=== PATIENT | male | born 1970 | race Caucasian/White ===

== ENCOUNTER 2017-10-10 12:49 | Emergency (ER) | payer OTHER ==
[~2017-10-10] VITALS: Ht 180.3 cm; Wt 69.0 kg
[2017-10-10 12:51] VITALS: BP 114/76
[2017-10-10] MEDS ORDERED: KETOROLAC 30 MG/1 ML ONE (13:23)
[2017-10-10] MEDS ORDERED: METHOCARBAMOL 750 MG TABLET ONE (13:23)
[2017-10-10] MEDS ORDERED: METHOCARBAMOL 750 MG TABLET PO ONE (13:30)
[2017-10-10] MEDS ORDERED: KETOROLAC 30 MG/1 ML IM ONE (13:30)
== END 2017-10-10 15:04 | disposition home or self-care (01) ==
LOC: ED 13:50
DX: S06.0X9A Concussion with loss of consciousness of unspecified duration, initial encounter (principal); S16.1XXA Strain of muscle, fascia and tendon at neck level, initial encounter; G44.219 Episodic tension-type headache, not intractable; V49.9XXA Car occupant (driver) (passenger) injured in unspecified traffic accident, initial encounter; Y93.89 Activity, other specified; Y99.8 Other external cause status; Y92.488 Other paved roadways as the place of occurrence of the external cause
CPT/HCPCS: 70450; 96372; 99284; J1885

== ENCOUNTER 2019-06-06 14:51 | Emergency (ER) | payer OTHER ==
[~2019-06-06] VITALS: Ht 180.3 cm; Wt 70.3 kg
[~2019-06-06 14:51] MED LIST: ALPR0.25 PO; ONDA4TAB13 SL; PANT40TA3 PO; SIMV20TA PO
--- NOTE | 2019-06-06 15:35 | NUR ---
pt to room
--- NOTE | 2019-06-06 15:40 | NUR ---
pt to xray
[2019-06-06] MEDS ORDERED: KETOROLAC 30 MG/1 ML ONE (15:57)
[2019-06-06] MEDS ORDERED: METHOCARBAMOL 750 MG TABLET ONE (15:57)
[2019-06-06] MEDS ORDERED: ONDANSETRON 2MG/ML, 2ML ONE (15:57)
[2019-06-06] MEDS ORDERED: HYDROmorphone 1 MG/ML, 1ML INJ ONE (15:57)
[2019-06-06] MEDS ORDERED: SODIUM CHLORIDE FLUSH 10ML SYR IVF ONE (16:00)
[2019-06-06] MEDS ORDERED: METHOCARBAMOL 750 MG TABLET PO ONE (16:00)
[2019-06-06] MEDS ORDERED: ONDANSETRON 2MG/ML, 2ML IVPush ONE (16:00)
[2019-06-06] MEDS ORDERED: KETOROLAC 30 MG/1 ML IVPush ONE (16:00)
[2019-06-06] MEDS ORDERED: HYDROmorphone 2 MG/ML, 1ML IVPush PRN (16:00)
--- NOTE | 2019-06-06 16:07 | NUR ---
Pt here for lower back pain x 5 days. pt reports he has had medications for and is not helping. Pt reports no loss of bowel control. Pt denies truama. 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 Pt connected to monitors and call light in reach.
[2019-06-06 16:08] VITALS: BP 108/63
--- NOTE | 2019-06-06 17:02 | NUR ---
Patient/Caregiver given discharge instructions and they have confirmed that they understand the instructions. Patient ambulatory with steady gait.
== END 2019-06-06 17:21 | disposition home or self-care (01) ==
LOC: ED 17:15
DX: S39.012A Strain of muscle, fascia and tendon of lower back, initial encounter (principal); X58.XXXA Exposure to other specified factors, initial encounter; Y93.89 Activity, other specified; Y92.89 Other specified places as the place of occurrence of the external cause; Y99.8 Other external cause status
CPT/HCPCS: 72110; 96374; 96375; 99283; J1170; J1885; J2405

== ENCOUNTER 2019-06-20 17:19 | Observation (INO) | payer OTHER ==
[~2019-06-20] VITALS: Ht 180.3 cm; Wt 67.8 kg
--- NOTE | 2019-06-20 20:12 | NUR ---
PT TO ROOM FROM LOBBY
--- NOTE | 2019-06-20 20:28 | NUR ---
DR. SAMANO AT BEDSIDE EVALUATING PT
[2019-06-20] MEDS ORDERED: methylPREDNISolone SOD SUCC 125 MG/2 ML ONE (20:46)
[2019-06-20] MEDS ORDERED: DIAZEPAM 5 MG/ML, 2ML ONE (20:47)
[2019-06-20] MEDS ORDERED: ONDANSETRON 2MG/ML, 2ML ONE (20:47)
[2019-06-20] MEDS ORDERED: HYDROmorphone 1 MG/ML, 1ML INJ ONE (20:47)
[2019-06-20 20:53] LABS: BASOPHILS # (AUTO) 0.09 x10^3/uL (0-0.1); BASOPHILS % (AUTO) 1 % (0-1); EOSINOPHILS # (AUTO) 0.04 x10^3/uL (0-0.4); EOSINOPHILS % (AUTO) 0 % (1-7); LYMPHOCYTES % (AUTO) 29 % (22-44); MD NO; MEAN CORPUSCULAR HEMOGLOBIN 31.6 pg (27.5-34.5); MEAN CORPUSCULAR HGB CONC 33.9 g/dL (33.2-36.2); MEAN CORPUSCULAR VOLUME 93.1 fL (81-97); MEAN PLATELET VOLUME 7.6 fL (7.4-10.4); MONOCYTES # (AUTO) 0.67 x10^3/uL (0.2-0.8); MONOCYTES % (AUTO) 7 % (2-9); NEUTROPHILS # (AUTO) 5.98 x10^3/uL (1.8-6.8); NEUTROPHILS % (AUTO) 63 % (42-75); PLATELET COUNT 216 x10^3/uL (130-400); RED BLOOD COUNT 5.48 x10^6/uL (4.38-5.82); RED CELL DISTRIBUTION WIDTH 14.4 % (9.4-14.8)
[2019-06-20 21:00] LABS: ALANINE AMINOTRANSFERASE 115 U/L (12-78); ALBUMIN 4.5 g/dL (3.4-5.0); ANION GAP 10 mmol/L (5-15); CALCIUM 9.8 mg/dL (8.5-10.1); CHLORIDE 104 mmol/L (98-107); CREATININE 1.23 mg/dL (0.7-1.3)
[2019-06-20] MEDS ORDERED: SODIUM CHLORIDE FLUSH 10ML SYR IVF ONE (21:00)
[2019-06-20] MEDS ORDERED: DIAZEPAM 5 MG/ML, 2ML IVPush ONE (21:00)
[2019-06-20] MEDS ORDERED: ONDANSETRON 2MG/ML, 2ML IVPush ONE (21:00)
[2019-06-20] MEDS ORDERED: SODIUM CHLORIDE 0.9% 1,000ML IV ONE (21:00)
[2019-06-20] MEDS ORDERED: HYDROmorphone 2 MG/ML, 1ML IVPush PRN (21:00)
[2019-06-20] MEDS ORDERED: methylPREDNISolone SOD SUCC 125 MG/2 ML IVPush ONE (21:00)
[2019-06-20 21:02] LABS: ALKALINE PHOSPHATASE 69 U/L (45-117); TOTAL PROTEIN 8.5 g/dL (6.4-8.2)
--- NOTE | 2019-06-20 21:03 | NUR ---
IV ESTABLISHED AND PT MEDICATED PER EMAR. 5 RIGHTS ADDRESSED. PT REPORTS SIGNIFICANT RELIEF FROM PAIN AFTER VALIUM ADMINISTRATION. DILAUDID HELD FOR NOW. PT ALSO REPORTS RELIEF FROM NAUSEA AFTER ZOFRAN ADMINISTRATION.
--- NOTE | 2019-06-20 21:33 | NUR ---
PT MEDICATED FOR PAIN. PT REPORTS A SIGNIFICANT RELIEF IN DISCOMFORT. PT SITTING UP ON GURNEY. TOLERATING PO FLUIDS AT THIS TIME. PT TO BE ADMITTED, AWAITING ROOM ON FLOOR. WILL CONTINUE TO MONITOR. CALL LIGHT WITHIN REACH.
--- NOTE | 2019-06-20 21:52 | NUR ---
REPORT TO KISHRO GARCIA.
[2019-06-20] MEDS ORDERED: OXYC-307 PO (22:42)
[2019-06-20] MEDS ORDERED: METH750T87 PO (22:42)
[2019-06-20] MEDS ORDERED: DULO20CA45 PO (22:42)
[2019-06-20] MEDS ORDERED: NAPR-858 PO (22:42)
[2019-06-20 22:43] VITALS: BP 102/67
[2019-06-21] MEDS ORDERED: HYDROcodone/APAP 5/325 TABLET PO PRN
[2019-06-21] MEDS ORDERED: ACETAMINOPHEN 325 MG TABLET PO PRN
[2019-06-21] MEDS ORDERED: hydrALAzine 20 MG/ML, 1ML IVPush PRN
[2019-06-21] MEDS ORDERED: POLYETHYLENE GLYCOL 17 GM PACKET PO PRN
[2019-06-21] MEDS ORDERED: BISACODYL 10 MG SUPP PR PRN
[2019-06-21] MEDS ORDERED: PROMETHAZINE 25 MG/ML, 1ML IM PRN
[2019-06-21] MEDS ORDERED: ONDANSETRON ODT 4 MG PO PRN
[2019-06-21] MEDS: ENOXAPARIN 40 MG/0.4 ML SQ SCH ×2 (00:11→23:40)
[2019-06-21] MEDS: morphine SULFATE 10 MG/ML, 1ML IVPush PRN ×5 (00:12→23:40)
[2019-06-21 00:18] LABS: FREE T4 (FREE THYROXINE) 1.31 ng/dL (0.76-1.46)
[2019-06-21] MEDS: KETOROLAC 30 MG/1 ML IV PRN ×3 (00:42→18:41)
[2019-06-21 00:44] LABS: MICROSCOPIC NOT IND
[2019-06-21 00:57] LABS: CULTURE INDICATED? NO
[2019-06-21 02:35] VITALS: BP 118/75
[2019-06-21 08:40] VITALS: BP 115/71
[2019-06-21] MEDS: SENNA/DOCUSATE TABLET PO SCH (09:04)
[2019-06-21 09:36] LABS: BASOPHILS # (AUTO) 0.03 x10^3/uL (0-0.1); BASOPHILS % (AUTO) 0 % (0-1); EOSINOPHILS % (AUTO) 0 % (1-7); LYMPHOCYTES # (AUTO) 2.08 x10^3/uL (1-3.4); LYMPHOCYTES % (AUTO) 19 % (22-44); MD NO; MEAN CORPUSCULAR VOLUME 94.2 fL (81-97); MEAN PLATELET VOLUME 7.4 fL (7.4-10.4); MONOCYTES # (AUTO) 0.41 x10^3/uL (0.2-0.8); MONOCYTES % (AUTO) 4 % (2-9); NEUTROPHILS # (AUTO) 8.71 x10^3/uL (1.8-6.8); NEUTROPHILS % (AUTO) 78 % (42-75); PLATELET COUNT 206 x10^3/uL (130-400); RED BLOOD COUNT 5.09 x10^6/uL (4.38-5.82)
[2019-06-21 09:48] LABS: ANION GAP 10 mmol/L (5-15); CALCIUM 9.3 mg/dL (8.5-10.1); CHLORIDE 105 mmol/L (98-107)
[2019-06-21 09:52] LABS: ALANINE AMINOTRANSFERASE 93 U/L (12-78); ALKALINE PHOSPHATASE 64 U/L (45-117); BILIRUBIN,TOTAL 0.9 mg/dL (0.2-1.0); CHOL/HDL RATIO 4.9; CHOLESTEROL, TOTAL 227 mg/dL (140-239); CREATININE 1.03 mg/dL (0.7-1.3); HDL CHOL % 20 % (26-37); HDL CHOLESTEROL (DIRECT) 46 mg/dL (40-60); LDL CHOLESTEROL,CALCULATED 166 mg/dL (54-169); LDL/HDL RATIO 3.6 (0.5-3.0); TOTAL PROTEIN 7.6 g/dL (6.4-8.2); TRIGLYCERIDES 75 mg/dL (50-200); VLDL CHOLESTEROL 15 mg/dL (0-25)
[2019-06-21] MEDS: CYCLOBENZAPRINE 10 MG TABLET PO PRN (11:10)
[2019-06-21] MEDS: DULOXETINE 30 MG CAPSULE.DR PO SCH (11:10)
[2019-06-21] MEDS: OXYcodone/APAP 10/325MG TABLET PO PRN ×2 (11:11→17:29)
[2019-06-21] MEDS: ONDANSETRON 2MG/ML, 2ML IVPush PRN ×2 (12:39→18:41)
[2019-06-21 13:40] VITALS: BP 116/71
[2019-06-21] MEDS: LACTATED RINGERS 1,000 ML IV SCH ×2 (15:41→23:35)
[2019-06-21 18:48] VITALS: BP 109/73
[2019-06-22 00:49] VITALS: BP 105/66
[2019-06-22] MEDS: morphine SULFATE 10 MG/ML, 1ML IVPush PRN ×4 (03:55→14:15)
[2019-06-22 05:02] LABS: MEAN CORPUSCULAR HEMOGLOBIN 31.4 pg (27.5-34.5); MEAN CORPUSCULAR VOLUME 95.1 fL (81-97); MEAN PLATELET VOLUME 7.4 fL (7.4-10.4); PLATELET COUNT 196 x10^3/uL (130-400); RED BLOOD COUNT 4.31 x10^6/uL (4.38-5.82); RED CELL DISTRIBUTION WIDTH 13.9 % (9.4-14.8)
[2019-06-22 05:08] LABS: ALBUMIN 3.4 g/dL (3.4-5.0); ANION GAP 3 mmol/L (5-15); CALCIUM 8.4 mg/dL (8.5-10.1); CHLORIDE 107 mmol/L (98-107)
[2019-06-22 05:12] LABS: ALANINE AMINOTRANSFERASE 66 U/L (12-78); ALKALINE PHOSPHATASE 48 U/L (45-117); BILIRUBIN,TOTAL 0.9 mg/dL (0.2-1.0); CREATININE 0.86 mg/dL (0.7-1.3); TOTAL PROTEIN 6.3 g/dL (6.4-8.2)
[2019-06-22 05:42] LABS: BASOPHILS # (AUTO) 0.04 x10^3/uL (0-0.1); BASOPHILS % (AUTO) 1 % (0-1); EOSINOPHILS # (AUTO) 0.13 x10^3/uL (0-0.4); EOSINOPHILS % (AUTO) 1 % (1-7); LYMPHOCYTES # (AUTO) 4.33 x10^3/uL (1-3.4); LYMPHOCYTES % (AUTO) 47 % (22-44); MD SCAN; MONOCYTES # (AUTO) 0.64 x10^3/uL (0.2-0.8); MONOCYTES % (AUTO) 7 % (2-9); NEUTROPHILS # (AUTO) 4.02 x10^3/uL (1.8-6.8); NEUTROPHILS % (AUTO) 44 % (42-75)
[2019-06-22 07:06] VITALS: BP 111/73
[2019-06-22] MEDS: LACTATED RINGERS 1,000 ML IV SCH (07:10)
[2019-06-22] MEDS: DULOXETINE 30 MG CAPSULE.DR PO SCH (10:22)
[2019-06-22] MEDS: CYCLOBENZAPRINE 10 MG TABLET PO PRN (10:25)
[2019-06-22] MEDS: SENNA/DOCUSATE TABLET PO SCH (10:26)
[2019-06-22] MEDS: ONDANSETRON 2MG/ML, 2ML IVPush PRN (10:42)
[2019-06-22] MEDS ORDERED: CYCL-259 PO (11:19)
[2019-06-22] MEDS ORDERED: PRED20TA PO (11:19)
[2019-06-22] MEDS ORDERED: ONDA4TAB13 PO (11:20)
[2019-06-22 13:50] VITALS: BP 121/78
== END 2019-06-22 14:32 | disposition home or self-care (01) ==
LOC: ED 20:50 → INTOOBSV 22:25 → EDIP 22:25 → 4NE 22:28 → 4NW 06-21 20:14 → DCLOUNGE 06-22 14:30
PROVIDERS: ADMIT Emergency Medicine; ATTEND Family Medicine
DX: M54.5 Low back pain (principal); M51.17 Intervertebral disc disorders with radiculopathy, lumbosacral region; G89.29 Other chronic pain; K21.9 Gastro-esophageal reflux disease without esophagitis; F41.9 Anxiety disorder, unspecified; F12.10 Cannabis abuse, uncomplicated; E86.0 Dehydration; Z87.891 Personal history of nicotine dependence; Z79.899 Other long term (current) drug therapy
CPT/HCPCS: 36415; 76700; 80053; 80061; 81003; 83036; 83735; 84439; 84443; 85025; 96361; 96372; 96374; 96375; 96376; G0378; J1650; J1885; J2270; J2405; J2930; J3360; J7030; J7120; J7512; Q0162

== ENCOUNTER 2019-07-04 07:59 | Observation (INO) | payer OTHER ==
[~2019-07-04] VITALS: Ht 180.3 cm; Wt 68.0 kg
[~2019-07-04 07:59] MED LIST changes: +CYCL-259 PO; +DULO20CA45 PO; +METH750T87 PO; +NAPR-858 PO; +ONDA4TAB13 PO; +OXYC-307 PO; +PRED20TA PO
[2019-07-04] MEDS ORDERED: SODIUM CHLORIDE 0.9% 1,000ML IVBOLUS ONE (08:30)
[2019-07-04] MEDS ORDERED: ONDANSETRON 2MG/ML, 2ML IVPush ONE (08:30)
[2019-07-04] MEDS ORDERED: SODIUM CHLORIDE FLUSH 10ML SYR IVF ONE (08:30)
[2019-07-04] MEDS ORDERED: HYDROmorphone 1 MG/ML, 1ML INJ ONE ×2 (08:34→13:11)
[2019-07-04] MEDS ORDERED: ONDANSETRON 2MG/ML, 2ML ONE (08:34)
[2019-07-04] MEDS: HYDROmorphone 2 MG/ML, 1ML IVPush PRN ×2 (08:53→13:23)
--- NOTE | 2019-07-04 08:54 | NUR ---
PT RETURNED FROM XRAY. IV ESTABLISHED AND PT MEDICATED PER MAR, IVF INFUSING. PT GIVEN SAMPLE CUP FOR UA. CALL LIGHT WITHIN REACH.
[2019-07-04 08:58] LABS: BASOPHILS # (AUTO) 0.04 x10^3/uL (0-0.1); BASOPHILS % (AUTO) 1 % (0-1); EOSINOPHILS # (AUTO) 0.12 x10^3/uL (0-0.4); EOSINOPHILS % (AUTO) 2 % (1-7); LYMPHOCYTES # (AUTO) 2.41 x10^3/uL (1-3.4); LYMPHOCYTES % (AUTO) 30 % (22-44); MD NO; MEAN CORPUSCULAR HEMOGLOBIN 31.8 pg (27.5-34.5); MEAN CORPUSCULAR HGB CONC 33.7 g/dL (33.2-36.2); MEAN CORPUSCULAR VOLUME 94.3 fL (81-97); MEAN PLATELET VOLUME 7.1 fL (7.4-10.4); MONOCYTES # (AUTO) 0.46 x10^3/uL (0.2-0.8); MONOCYTES % (AUTO) 6 % (2-9); NEUTROPHILS # (AUTO) 4.92 x10^3/uL (1.8-6.8); NEUTROPHILS % (AUTO) 62 % (42-75); PLATELET COUNT 239 x10^3/uL (130-400); RED BLOOD COUNT 5.14 x10^6/uL (4.38-5.82); RED CELL DISTRIBUTION WIDTH 14.4 % (9.4-14.8)
[2019-07-04 09:11] LABS: ALBUMIN 4.1 g/dL (3.4-5.0); ANION GAP 9 mmol/L (5-15); CHLORIDE 106 mmol/L (98-107)
[2019-07-04 09:15] LABS: ALANINE AMINOTRANSFERASE 52 U/L (12-78); ALKALINE PHOSPHATASE 67 U/L (45-117); BILIRUBIN,TOTAL 1.2 mg/dL (0.2-1.0); CREATININE 1.01 mg/dL (0.7-1.3); TOTAL PROTEIN 7.9 g/dL (6.4-8.2)
[2019-07-04] MEDS ORDERED: DIAZEPAM 5 MG/ML, 2ML IVPush ONE (10:00)
[2019-07-04 10:04] LABS: MICROSCOPIC NOT IND
[2019-07-04 10:16] LABS: CULTURE INDICATED? NO
--- NOTE | 2019-07-04 10:20 | NUR ---
PT RESTING IN [facility] PT MEDICATED PER JUL. AWAITING LAB AND RAD RESULTS. PT STATES HE IS STILL IN PAIN.
[2019-07-04] MEDS ORDERED: DIAZEPAM 5 MG/ML, 2ML ONE (10:35)
--- NOTE | 2019-07-04 12:13 | NUR ---
ADMITTING MD AT BEDSIDE
[2019-07-04] MEDS ORDERED: IBUPROFEN 600 MG TABLET PO PRN (12:30)
[2019-07-04] MEDS ORDERED: ONDANSETRON 2MG/ML, 2ML IVPush PRN (12:30)
[2019-07-04] MEDS: LACTULOSE 10 GM/15 ML UDC PO SCH ×2 (12:30→22:22)
[2019-07-04] MEDS ORDERED: LACTULOSE 20 GM/30 ML UDC PO PRN (12:30)
[2019-07-04] MEDS ORDERED: BISACODYL 10 MG SUPP PR PRN (12:30)
[2019-07-04] MEDS ORDERED: hydrALAzine 20 MG/ML, 1ML IVPush PRN (12:30)
[2019-07-04] MEDS ORDERED: OXYcodone IR 5MG TABLET PO PRN (12:30)
[2019-07-04] MEDS ORDERED: LIDODERM 5% PATCH TD PRN (12:30)
[2019-07-04] MEDS ORDERED: ONDANSETRON ODT 4 MG PO PRN (12:30)
--- NOTE | 2019-07-04 12:43 | NUR ---
PT RESTING IN [facility], PT TO BE ADMITTED. AWAITING BED ASSIGNMENT. DIET TRAY ORDERED FOR LUNCH, PT STATES HE WOULD LIKE MEDS WITH FOOD HASN'T EATEN IN A FEW DAYS.
[2019-07-04] MEDS ORDERED: methylPREDNISolone SOD SUCC 125 MG/2 ML ONE (13:11)
[2019-07-04] MEDS ORDERED: ACETAMINOPHEN 500 MG TABLET ONE ×2 (13:11→16:08)
[2019-07-04] MEDS ORDERED: DOCUSATE 100 MG CAPSULE ONE (13:12)
[2019-07-04] MEDS: GABAPENTIN 100 MG CAPSULE PO SCH ×3 (13:21→22:22)
[2019-07-04] MEDS: ACETAMINOPHEN 325 MG TABLET PO SCH ×3 (13:21→22:23)
[2019-07-04] MEDS: DOCUSATE 100 MG CAPSULE PO SCH (13:21)
[2019-07-04] MEDS: methylPREDNISolone SOD SUCC 125 MG/2 ML IVPush SCH ×2 (13:23→21:01)
--- NOTE | 2019-07-04 13:26 | NUR ---
TASK RN: PT MEDICATED PER JUL FOR 8 PAIN. VSS AT THIS TIME, PLACED ON SUPP O2 TO KEEP SATS WNL WHILE RESTING. PT EATING DIET TRAY. NO FUTHER NEEDS AT THIS TIME. CALL LIGHT WITHIN REACH
[2019-07-04] MEDS ORDERED: LIDODERM 5% PATCH TD ONE (15:19)
[2019-07-04] MEDS ORDERED: METHOCARBAMOL 500 MG TABLET ONE (15:25)
[2019-07-04] MEDS: METHOCARBAMOL 500 MG TABLET PO PRN (15:27)
--- NOTE | 2019-07-04 16:37 | NUR ---
FLOOR BED AND DINNER TRAY ORDERED
[2019-07-04] MEDS ORDERED: OXYcodone IR 5MG TABLET ONE (17:54)
--- NOTE | 2019-07-04 17:59 | NUR ---
ATTEMPTED TO CALL REPORT X1, RN TO CALL BACK
--- NOTE | 2019-07-04 18:05 | NUR ---
REPORT TO TEOFILO IVERSON
[2019-07-04 19:20] VITALS: BP 118/83
[2019-07-04] MEDS: morphine SULFATE 10 MG/ML, 1ML IVPush PRN ×2 (19:33→22:44)
[2019-07-04] MEDS: SENNA/DOCUSATE TABLET PO SCH (22:23)
[2019-07-05 00:47] VITALS: BP 115/71
[2019-07-05] MEDS ORDERED: FLU VACC QS2019-20 36MOS UP/PF 0.5 ML IM-VACC ONE (04:30)
[2019-07-05] MEDS: GABAPENTIN 100 MG CAPSULE PO SCH ×4 (05:02→20:51)
[2019-07-05] MEDS: methylPREDNISolone SOD SUCC 125 MG/2 ML IVPush SCH ×3 (05:02→20:53)
[2019-07-05] MEDS: morphine SULFATE 10 MG/ML, 1ML IVPush PRN ×5 (05:17→20:53)
[2019-07-05 06:43] LABS: BASOPHILS # (AUTO) 0.03 x10^3/uL (0-0.1); BASOPHILS % (AUTO) 0 % (0-1); EOSINOPHILS % (AUTO) 0 % (1-7); LYMPHOCYTES # (AUTO) 1.32 x10^3/uL (1-3.4); LYMPHOCYTES % (AUTO) 13 % (22-44); MD NO; MEAN CORPUSCULAR HEMOGLOBIN 31.5 pg (27.5-34.5); MEAN CORPUSCULAR HGB CONC 33.4 g/dL (33.2-36.2); MEAN CORPUSCULAR VOLUME 94.3 fL (81-97); MEAN PLATELET VOLUME 7.4 fL (7.4-10.4); MONOCYTES # (AUTO) 0.39 x10^3/uL (0.2-0.8); MONOCYTES % (AUTO) 4 % (2-9); NEUTROPHILS # (AUTO) 8.65 x10^3/uL (1.8-6.8); NEUTROPHILS % (AUTO) 83 % (42-75); PLATELET COUNT 198 x10^3/uL (130-400); RED BLOOD COUNT 4.88 x10^6/uL (4.38-5.82); RED CELL DISTRIBUTION WIDTH 13.9 % (9.4-14.8)
[2019-07-05 06:47] LABS: ANION GAP 4 mmol/L (5-15); CALCIUM 9.2 mg/dL (8.5-10.1); CHLORIDE 105 mmol/L (98-107)
[2019-07-05] MEDS: DOCUSATE 50 MG/5 ML, 10ML UDC NG SCH (07:52)
[2019-07-05 08:23] VITALS: BP 115/80
[2019-07-05] MEDS: ACETAMINOPHEN 325 MG TABLET PO SCH ×3 (09:33→20:52)
[2019-07-05] MEDS: LACTULOSE 10 GM/15 ML UDC PO SCH ×2 (09:34→20:50)
[2019-07-05] MEDS: DOCUSATE 100 MG CAPSULE PO SCH (09:35)
[2019-07-05 18:08] VITALS: BP 144/91
[2019-07-05 18:51] VITALS: BP 120/80
[2019-07-05] MEDS: SENNA/DOCUSATE TABLET PO SCH (20:50)
[2019-07-06 00:34] VITALS: BP 119/75
[2019-07-06] MEDS: morphine SULFATE 10 MG/ML, 1ML IVPush PRN ×3 (01:05→09:41)
[2019-07-06] MEDS: GABAPENTIN 100 MG CAPSULE PO SCH ×2 (05:00→09:40)
[2019-07-06] MEDS: methylPREDNISolone SOD SUCC 125 MG/2 ML IVPush SCH ×2 (05:00→12:52)
[2019-07-06 06:12] LABS: ALBUMIN 3.7 g/dL (3.4-5.0); ANION GAP 4 mmol/L (5-15); CALCIUM 9.1 mg/dL (8.5-10.1); CHLORIDE 105 mmol/L (98-107)
[2019-07-06 06:16] LABS: ALANINE AMINOTRANSFERASE 65 U/L (12-78); ALKALINE PHOSPHATASE 62 U/L (45-117); BILIRUBIN,TOTAL 0.7 mg/dL (0.2-1.0); CREATININE 0.88 mg/dL (0.7-1.3); TOTAL PROTEIN 7.3 g/dL (6.4-8.2)
[2019-07-06 07:31] VITALS: BP 115/71
[2019-07-06] MEDS ORDERED: ACETAMINOPHEN 500 MG TABLET PO SCH (09:35)
[2019-07-06] MEDS: DOCUSATE 50 MG/5 ML, 10ML UDC NG SCH (09:40)
[2019-07-06] MEDS: LACTULOSE 10 GM/15 ML UDC PO SCH (09:40)
[2019-07-06] MEDS: DOCUSATE 100 MG CAPSULE PO SCH (09:40)
[2019-07-06] MEDS: METHOCARBAMOL 500 MG TABLET PO PRN (09:40)
[2019-07-06] MEDS ORDERED: DEXA4TAB66 PO (11:00)
[2019-07-06] MEDS ORDERED: ACET500T64 PO (11:00)
[2019-07-06] MEDS ORDERED: DOCU100C33 PO (11:00)
[2019-07-06] MEDS ORDERED: OXYC10TA6 PO (11:00)
== END 2019-07-06 14:19 | disposition home or self-care (01) ==
LOC: ED 08:20 → SUATTDRO 12:03 → EDIP 12:15 → 3N 18:40 → DCLOUNGE 07-06 14:14
PROVIDERS: ADMIT Hospitalist; ATTEND Hospitalist
DX: M51.16 Intervertebral disc disorders with radiculopathy, lumbar region (principal); F11.20 Opioid dependence, uncomplicated; K59.00 Constipation, unspecified; G89.29 Other chronic pain; E80.7 Disorder of bilirubin metabolism, unspecified; R63.4 Abnormal weight loss; Z23 Encounter for immunization; Z88.0 Allergy status to penicillin
CPT/HCPCS: 36415; 74018; 80048; 80053; 81003; 83605; 85025; 90471; 90686; 96374; 96375; 96376; 97163; 99285; G0378; J1170; J2270; J2405; J2930; J3360; J7030

== ENCOUNTER 2020-12-09 15:30 | Emergency (ER) | payer OTHER ==
[~2020-12-09] VITALS: Ht 180.3 cm; Wt 66.2 kg
[~2020-12-09 15:30] MED LIST changes: +ACET500T64 PO; -CYCL-259 PO; +CYCL10TA2 PO; +DEXA4TAB66 PO; +DOCU100C33 PO; -OXYC-307 PO; +OXYC-380 PO; +OXYC10TA6 PO
[2020-12-09 15:33] VITALS: BP 112/80
[2020-12-09 17:02] LABS: BASOPHILS % (AUTO) 1 % (0-1); EOSINOPHILS % (AUTO) 2 % (1-7); LYMPHOCYTES % (AUTO) 52 % (22-44); MEAN CORPUSCULAR HEMOGLOBIN 31.6 pg (27.5-34.5); MEAN CORPUSCULAR HGB CONC 33.9 g/dL (33.2-36.2); MEAN PLATELET VOLUME 7.1 fL (7.4-10.4); MONOCYTES % (AUTO) 8 % (2-9); NEUTROPHILS % (AUTO) 37 % (42-75); PLATELET COUNT 248 x10^3/uL (130-400); RED CELL DISTRIBUTION WIDTH 13.8 % (9.4-14.8)
[2020-12-09 17:04] LABS: ANION GAP 3 mmol/L (5-15); CHLORIDE 107 mmol/L (98-107); CREATININE 0.96 mg/dL (0.7-1.3)
[2020-12-09 17:05] LABS: ALANINE AMINOTRANSFERASE 23 U/L (12-78); ALBUMIN 4.1 g/dL (3.4-5.0)
[2020-12-09 17:09] LABS: ALKALINE PHOSPHATASE 70 U/L (45-117); BILIRUBIN,TOTAL 0.5 mg/dL (0.2-1.0); TOTAL PROTEIN 7.8 g/dL (6.4-8.2); TROPONIN I < 0.015 ng/mL (0.000-0.045)
--- NOTE | 2020-12-09 20:58 | NUR ---
WELLNESS INSTRUCTOR: CALL TO ROOM, NIL AT THIS TIME.
--- NOTE | 2020-12-09 21:52 | NUR ---
NIL X3. ELOPED
== END 2020-12-09 21:54 | disposition left against medical advice (07) ==
LOC: ED 16:00
DX: R07.9 Chest pain, unspecified (principal); R06.00 Dyspnea, unspecified; R11.2 Nausea with vomiting, unspecified
CPT/HCPCS: 36415; 71045; 80053; 84484; 85025; 93005; 99285